=== PATIENT | female | born 1970 | race Caucasian/White ===

== ENCOUNTER 2020-02-27 10:19 | Emergency (ER) | payer BC ==
[~2020-02-27] VITALS: Ht 180.3 cm; Wt 106.6 kg
[2020-02-27] MEDS ORDERED: GLUCOPHAGE1000 MG PO (11:55)
[2020-02-27] MEDS ORDERED: DIOVAN HCT 1601 EACH PO (11:56)
[2020-02-27] MEDS ORDERED: ZOCOR40 MG PO (11:57)
[2020-02-27] MEDS ORDERED: LEXAPRO20 MG PO (11:57)
== END 2020-02-27 13:50 | disposition home or self-care (01) ==
LOC: ED 10:19
DX: S82.402A Unspecified fracture of shaft of left fibula, initial encounter for closed fracture (principal); Z79.899 Other long term (current) drug therapy; Z79.84 Long term (current) use of oral hypoglycemic drugs; X58.XXXA Exposure to other specified factors, initial encounter; Y93.89 Activity, other specified; Y92.89 Other specified places as the place of occurrence of the external cause; Y99.8 Other external cause status